=== PATIENT | female | born 1990 | race African-American/Black ===

== ENCOUNTER 2020-09-06 11:43 | Outpatient (REF) | payer OTHER, SELFPAY | END 2020-09-06 11:44 | disposition home or self-care (01) | LOC: HO.LAB 11:43 | PROVIDERS: Visit Provider Internal Medicine | DX: Z20.822 Contact with and (suspected) exposure to COVID-19 (principal) | CPT/HCPCS: C9803; U0003; U0005 ==

== ENCOUNTER 2020-10-21 09:34 | Outpatient (REF) | payer OTHER, SELFPAY | END 2020-10-21 09:35 | disposition home or self-care (01) | LOC: HO.LAB 09:34 | PROVIDERS: Visit Provider Internal Medicine | DX: Z20.822 Contact with and (suspected) exposure to COVID-19 (principal) | CPT/HCPCS: C9803; U0003; U0005 ==

== ENCOUNTER 2024-05-21 22:01 | Emergency (ER) | payer OTHER, SELFPAY ==
--- NOTE | ~2024-05-21 | XR_ITS ---
CLINICAL HISTORY: pain 3 views lumbar spine Comparison: None Findings: Bilateral tubal occlusion devices. Normal lumbar vertebral body height and alignment. No fracture. No suspicious bone lesion. Soft tissues normal. No degenerative changes. IMPRESSION: No acute findings. This document has been electronically signed by: Anderson Webb MD on 05/21/2024 23:19:36
[2024-05-21 22:22] VITALS: BP 124/68; PULSE 91; RESP 18; TEMP 36.7; O2SAT 98; BMI 27.5
--- NOTE | 2024-05-22 00:30 | ED.BACK ---
HPI - Back Pain/Injury General Chief Complaint: Back Pain/Injury Stated Complaint: back pain, no injury Time Seen by Provider: 05/22/24 00:29 Source: patient Limitations: no limitations History of Present Illness ED Provider: Sharlene Reza PA-C HPI Narrative: 33-year-old female with a history of prior sciatica, presents with low back pain x1 day. Patient states the pain is radiating into her left leg. Patient is not sure we will could have triggered her symptoms. She denies fall, other trauma, overuse injury. Denies paresthesia, weakness of lower extremity, urinary retention or bowel incontinence. Related Data Previous Rx's ?Medication ?Instructions ?Recorded methocarbamol 750 mg tablet 750 mg PO Q8H PRN pain, moderate 05/22/24 #15 tabs methylprednisolone 4 mg tablets in 4 mg PO DAILY #1 ea 05/22/24 a dose pack (Medrol (Roberto)) Allergies Allergy/AdvReac Type Severity Reaction Status Date / Time No Known Allergies Allergy Unverified 05/21/24 22:25 Review of Systems Review of Systems: Yes all other systems are reviewed and are negative Constitutional: Constitutional: Denies fatigue and Denies fever(s) Cardiovascular: Cardiovascular: Denies chest pain and Denies dyspnea Respiratory: Respiratory: Denies dyspnea Gastrointestinal: Gastrointestinal: Denies abdominal pain Musculoskeletal: Musculoskeletal: Reports back pain, Denies muscle weakness, Denies numbness, Reports radiating pain into limb and Denies tingling Neurologic: Denies numbness and Denies tingling Endocrine: Endocrine: Denies fatigue PMF Past Medical History Attestation statement: The following information was validated with the patient. Physical Exam Vital Signs: Vital Signs: Last Vital Signs Temp 97.9 F 05/22/24 01:34 Pulse 78 05/22/24 01:34 Resp 16 05/22/24 01:34 BP 119/68 05/22/24 01:34 Pulse Ox 99 05/22/24 01:34 O2 Del Method Room Air 05/22/24 01:34 BMI result Body Mass Index 27.5 Const: Other: Alert well-appearing Orientation/consciousness: patient oriented x3 Resp: Effort & Inspection: normal respiratory effort Cardio: Other: Normal peripheral perfusion Skin: Other: Warm dry no rash Neuro: General: patient oriented x3, gait normal, no focal motor deficits and CN's II-XI intact bilaterally Extrem: Other: Strength 5/5 bilateral lower extremities Psych: Other: Calm cooperative Medications Administered Discontinued Medications Generic Name Dose Route Start Last Admin Trade Name Freq PRN Reason Stop Dose Admin Methocarbamol 750 mg 05/22/24 00:44 05/22/24 01:25 Methocarbamol 750 Mg Tablet PO 05/22/24 00:45 750 mg ONCE ONE Administration Medical Decision Making Medical Decision Making MDM Narrative: 33-year-old female with a history of prior sciatica, presents with low back pain x1 day. Patient states the pain is radiating into her left leg. Patient is not sure we will could have triggered her symptoms. She denies fall, other trauma, overuse injury. Denies paresthesia, weakness of lower extremity, urinary retention or bowel incontinence. Problem: Prior sciatica History: Per patient I have considered the following differential diagnoses: Lumbar strain, lumbar radiculopathy, cauda equina, fracture Plan: Patient here with symptoms of sciatica without red flag signs symptoms concerning for cord compression, fracture least likely given no actual trauma, imaging not warranted at this time, but was obtained from triage. We will treat with muscle relaxant and a steroid taper, the patient can follow up with the primary care provider as needed. xray lumbra: 3 views lumbar spine Comparison: None Findings: Bilateral tubal occlusion devices. Normal lumbar vertebral body height and alignment. No fracture. No suspicious bone lesion. Soft tissues normal. No degenerative changes. IMPRESSION: No acute findings. This document has been electronically signed by: Anderson Webb MD on 05/21/2024 23:19:36 Discharge Plan Discharge Clinical Impression: Lumbar radiculopathy Patient Disposition: Home, Self-Care Instructions: Lumbar Radiculopathy (ED) Additional Instructions: You are being treated for sciatica. See home care instructions. Use the Medrol Dosepak as directed, take this medication in the morning, it can adversely affect sleep. This is a methocarbamol as needed, this is a muscle relaxant, it will cause drowsiness do not drive or operate machinery while taking the medication. Follow up with your primary care provider as needed. Prescriptions: New methocarbamol 750 mg tablet 750 mg PO Q8H PRN (Reason: pain, moderate) Qty: 15 0RF methylprednisolone [Medrol (Roberto)] 4 mg tablets,dose pack 4 mg PO DAILY Qty: 1 0RF Interventions: ED Discharge Assessment Last Done: 05/22/24 01:34 Discharge Date/Time: 05/22/24 01:35 Print Language: Spanish
[2024-05-22 00:57] VITALS: BP 119/68; PULSE 78; RESP 16; TEMP 36.6; O2SAT 99
[2024-05-22] MEDS: methocarbamoL 750 MG TABLET PO (01:25)
--- NOTE | 2024-05-22 01:25 | PC.NURSE ---
Scanner malfunctioning. Only lighting up red and will not scan medication or the patient's bracelet. Also attempted to restart computer and re-calibrate scanner without success. No other scanners were available at time of administration.
[2024-05-22 01:34] VITALS: BP 119/68; PULSE 78; RESP 16; TEMP 36.6; O2SAT 99
== END 2024-05-22 01:35 | disposition home or self-care (01) ==
PROVIDERS: Emergency Provider Emergency Medicine
DX: M54.16 Radiculopathy, lumbar region (principal)
CPT/HCPCS: 72100; 99283; 99284